=== PATIENT | female | born 1975 | race Caucasian/White ===

== ENCOUNTER → 2017-01-31 08:52 | Day surgery (SDC) | payer BC, OTHER ==
[~2017-01-31 08:52] MED LIST: Acetaminophen TAB* 325 MG PO PRN; Buffered Lidocaine 0.9% SYRIN* 5 ML/SYR SYRINGE INTRADERM ONE; Buffered Lidocaine 0.9% SYRIN* 5 ML/SYR SYRINGE ONE; Bupivacaine 0.25% SDV* 30 ML ONE; Bupivacaine 0.5% SDV PF* 30 ML VIAL ONE; Dexamethasone IV* 4 MG/ML 1 ML (4 MG) ONE; DiMENhydriNATE IV* 50 MG/ML VIAL IV PUSH PRN; Famotidine IV* 10 MG/ML 2 ML (20 mg) ONE; HYDROcodone/ACETAMIN 5-325 MG* 1 TAB PO PRN; Ketorolac INJ* 30 MG/ML 1 ML VIAL ONE; Levalbuterol 0.63MG/3ML NEB* UNIT OF USE INH PRN; Lidocaine 2% PF * 5 ML VIAL ONE; Midazolam* 1 MG/ML 5 ML VIAL (5 MG) ONE; Ondansetron INJ* 2 MG/ML VIAL IV PRN; Ondansetron INJ* 2 MG/ML VIAL ONE; Propofol* 10 MG/ML 20 ML BTL IV PUSH ONE; ceFAZolin 2 GM PREMIX (*) 50 ML IVPB ONE; fentaNYL* 50 MCG/ML 2 ML VIAL (100 MCG VIAL) IV PRN; fentaNYL* 50 MCG/ML 2 ML VIAL (100 MCG VIAL) ONE
[2017-01-31 15:35] VITALS: BP 103/68
--- NOTE | 2017-02-01 02:12 | OP ---
DATE OF OPERATION: 01/31/17 [facility] DATE OF : 71 SURGEON: Sher Carlos MD ELIGIBILITY WORKER: SCOTT Kendall. An assistant professor of communication was needed for the entirety of the procedure to aid in positioning of the arm under traction. ANESTHESIOLOGIST: Nicho Feliciano MD ANESTHESIA: General plus supraclavicular block. PRE-OP DIAGNOSIS: Left thumb carpometacarpal degenerative joint disease. POST-OP DIAGNOSIS: Left thumb carpometacarpal degenerative joint disease. OPERATIVE PROCEDURE: Left thumb carpometacarpal joint arthrodesis with autogenous distal radius bone graft. 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 She has had recurrent progressive basal joint pain. I talked to her about her treatment options. I had recommended a fusion. We talked to her what that means and risks and benefits. She wanted to proceed. ESTIMATED BLOOD LOSS: 5 mL. COMPLICATIONS: None. FINDINGS: As expected. DESCRIPTION OF PROCEDURE: Samantha was seen in the preoperative holding area. The correct side, site, and procedure were identified. We came back to the operating room where the arm was prepped and draped in the usual fashion. A formal time-out was performed. The arm was exsanguinated with the Esmarch and the tourniquet inflated to 250 mmHg. I began by making a longitudinal incision from the base of the thumb metacarpal just dorsal to the first dorsal compartment tendons down towards the radial styloid. Full dissection was carried down longitudinally preserving the dorsoradial sensory nerves. Full thickness flaps were raised. The radial artery was mobilized and retracted and preserved throughout the case. I then made a longitudinal capsulotomy and subperiosteal and full thickness capsular flaps were raised exposing the carpometacarpal joint. The scaphotrapezial joint was not opened. The soft tissue around the margins of the joint was released with a Grayling blade. The synovitis was excised. As I was doing the dissection out through the capsule of the joint, there was a synovial cyst/ large bit of synovitis that was protruding out through the joint capsule. This was excised and sent as a specimen. Once I had the joint exposed, I went ahead and took the sagittal saw and shaved off the most distal portion of the trapezium and the most proximal portion of the metacarpal base articular surfaces which were quite arthritic. I then brought the bones into apposition and things were apposing nicely. I therefore, turned by attention to obtain my distal radius bone graft. I made a 1-cm incision a bit proximal to the Ami's tubercle. Dissection was carried down and just distal to the first dorsal compartment tendons and in the interval between the second and third dorsal compartment tendons, I raised a subperiosteal flap. I then used an osteotome to make a cortical window. The angled curettes were used to obtain the cancellous distal radius bone graft. Once I had adequate bone graft, I irrigated out the wound and the skin was closed with 3- 0 nylon suture. I then placed my bone graft in the fusion site between the thumb base and the trapezium. The bones were apposed nicely. The cross K-wires were placed to hold the bone into position. I then brought in a 2.0-mm Synthes variable angle ladder plate of the Synthes variable angle handset. I placed two 2.0 cortical screws distally and then 2 variable angle locking screws unicortically into the trapezium. I placed an additional two 2.0-mm cortical screws distally. I checked fluoroscopy multiple times throughout the apposition of the bones and the instrumentation. Ultimately, everything was looking very nice except for I thought maybe one of the screws was just a cut close to the scaphotrapezial joint site, I took that out and exchanged it for a slightly shorter screw. Final fluoroscopic images looked very nice. We went ahead and gently irrigated out the wound. The capsule and subperiosteal layer was closed over the plate with a 4-0 Ethibond suture. Skin was closed with 4-0 nylon suture. The operative area was infiltrated with 0.25% plain Marcaine. The wounds were dressed with Xeroform, 4x4's, sterile Webril, and a thumb spica splint was placed holding the thumb in the abducted position. The tourniquet was deflated , the hand pinked up immediately. She was then taken to the recovery room in stable condition. [id number] #: [id number] PAN
--- NOTE | 2017-02-01 09:07 | RAD ---
INDICATION: Left thumb carpal metacarpal fusion. COMPARISON: Comparison is made with a prior x-ray study of the left hand from July 13 2016. TECHNIQUE: 33.1 seconds of intermittent fluoroscopic guidance were provided and 5 spot films of the left hand were obtained in the operating room. FINDINGS: The films demonstrate metallic plates present along the lateral aspect of the first metacarpal and trapezium bone transfixed with multiple screws consistent with a surgical fusion of the first carpal metacarpal joint. There is a lucent area present in the distal radial metaphysis likely representing a surgical defect. IMPRESSION: INTRAOPERATIVE CONTROL FILMS. CPT II Codes: 6045F
== END | disposition home or self-care (01) ==
LOC: OR 08:52
PROVIDERS: ATTEND Orthopaedic Surgery Hand Surgery
DX: M18.12 Unilateral primary osteoarthritis of first carpometacarpal joint, left hand (principal); M65.842 Other synovitis and tenosynovitis, left hand; J45.909 Unspecified asthma, uncomplicated; G89.18 Other acute postprocedural pain
CPT/HCPCS: 76000; 81025; 88304; C1713; C1776; J0690; J1100; J1885; J2250; J2405; J2704; J3010